=== PATIENT | male | born 1970 | race Caucasian/White ===

== ENCOUNTER → 2018-09-23 09:13 | Outpatient (CLI) | payer OTHER, SELFPAY ==
--- NOTE | 2018-09-23 09:15 | DI.RAD.S_ITS ---
PROCEDURE: XR WRIST RT MIN 3V INDICATIONS: wrist pain TECHNIQUE: 4 views of the wrist were acquired. COMPARISON: None. FINDINGS: Bones: No fractures or dislocations. No suspicious bony lesions. Scaphoid view: Scaphoid is intact. Soft tissues: No suspicious soft tissue calcifications. IMPRESSION: No fracture or dislocation. Dictated by: Madisyn Decker M.D. on 09/23/2018 at 10:09 Approved by: Madisyn Decker M.D. on 09/23/2018 at 10:10
== END ==
PROVIDERS: Visit Provider Physician Assistant
DX: M25.531 Pain in right wrist (principal)
CPT/HCPCS: 73110

== ENCOUNTER → 2019-08-16 11:06 | Outpatient (CLI) | payer OTHER, MEDICAID, SELFPAY ==
[2019-08-16 12:32] LABS: Influenza A - CEPHEID Flu A NEGATIVE (NEGATIVE); Influenza B - CEPHEID Flu B NEGATIVE (NEGATIVE)
== END ==
PROVIDERS: Referring Provider Family Medicine; Visit Provider Family Medicine
DX: R50.9 Fever, unspecified (principal)
CPT/HCPCS: 87502

== ENCOUNTER → 2019-09-19 09:30 | Outpatient (CLI) | payer OTHER, MEDICAID, SELFPAY ==
[2019-09-19 10:30] LABS: Add Manual Diff / Slide Review NO; Basophils Absolute Auto 100 /uL (0-100); Basophils Percent Auto 0.4 % (0-2); Eosinophils Absolute Auto 100 /uL (0-450); Lymphocytes Absolute Auto 2000 /uL (1100-4500); Mean Corpuscular HGB Conc 35.2 % (30-36); Mean Corpuscular Hemoglobin 35.9 PG (26-34); Mean Corpuscular Volume 101.8 fL (80-100); Monocytes Absolute Auto 600 /uL (0-900); Monocytes Percent Auto 5.1 % (3-14); Neutrophils Absolute Auto 9100 /uL (1500-7000); Neutrophils Percent Auto 76.5 % (50-75); Platelet Count 147 X10^3/uL (150-400); Red Blood Cell Count 5.01 X10^6/uL (4.5-5.9); Red Cell Distribution Width 12.3 % (11.6-14.8); White Blood Cell Count 11.9 X10^3/uL (4.5-11.0)
[2019-09-19 10:39] LABS: INR 0.9 (0.9-1.3); Prothrombin Time 10.5 SECONDS (10.1-12.7)
[2019-09-19 10:47] LABS: Alanine Aminotransferase 37 IU/L (<50); Albumin 4.5 g/dL (3.5-5.0); Albumin Globulin Ratio 1.4 (1.0-2.8); Alkaline Phosphatase 107 U/L (38-126); Aspartate Aminotransferase 31 IU/L (17-59); BUN Creatinine Ratio 14.4 (6-22); Bilirubin Total 0.4 mg/dL (0.2-1.3); Blood Urea Nitrogen 13 mg/dL (9-20); Calcium 10.3 mg/dL (8.4-10.2); Carbon Dioxide 26 mmol/L (22-32); Chloride 106 mmol/L (98-107); Estimated Glomerular Filt Rate > 60.0 mL/min (>60); Globulin 3.3 g/dL (1.7-4.1); Glucose 119 mg/dL (70-100); HEMOLYSIS 16 (0-50); Potassium 4.7 mmol/L (3.4-5.1); Sodium 140 mmol/L (137-145); Total Protein 7.8 g/dL (6.3-8.2)
== END ==
PROVIDERS: PCP Internal Medicine; Referring Provider Internal Medicine; Visit Provider Internal Medicine
DX: K62.5 Hemorrhage of anus and rectum (principal)
CPT/HCPCS: 36415; 80053; 85025; 85610

== ENCOUNTER → 2019-09-28 15:19 | Outpatient (CLI) | payer OTHER, MEDICAID, SELFPAY ==
--- NOTE | 2019-09-28 15:22 | DI.CT.S_ITS ---
PROCEDURE: CT SINUS SCREEN WO CON INDICATIONS: sinsusitis worsening sxs TECHNIQUE: Noncontrast 3.0 mm axial images acquired from the frontal sinuses to the mid-sella, with coronal and sagittal reformats. For radiation dose reduction, the following was used: automated exposure control, adjustment of mA and/or kV according to patient size. COMPARISON: None. FINDINGS: Image quality: Excellent. Maxillary Sinuses: No bony remodeling or destruction. Moderate right and mild left maxillary sinus because of thickening. Ethmoid Air Cells: No bony remodeling or destruction. Severe bilateral ethmoid air cell mucosal thickening. Sphenoid Sinuses: No bony remodeling or destruction. Sinuses are clear. Frontal Sinuses: No bony remodeling or destruction. Left frontal sinus is clear. Mild right frontal sinus mucosal thickening. Nasofrontal recesses are opacified. Ostiomeatal Complexes: Ostiomeatal complexes are opacified bilaterally. No Steffen cells. Miscellaneous: Visualized intra-orbital contents are normal. No nabeel bullosa or paradoxical turbinate curvature. There is mild leftward deviation of the nasal septum. IMPRESSION: 1. Key sinus mucosal disease as described above. 2. Bilateral ostiomeatal unit and nasofrontal recess opacification. 3. Nasal septal deviation. Dictated by: Tatyana Gauthier M.D. on 09/28/2019 at 15:44 Approved by: Tatyana Gauthier M.D. on 09/28/2019 at 15:46
== END ==
PROVIDERS: PCP Internal Medicine; Referring Provider Internal Medicine; Visit Provider Internal Medicine
DX: J32.4 Chronic pansinusitis (principal); J34.2 Deviated nasal septum
CPT/HCPCS: 70486

== ENCOUNTER 2021-10-31 14:25 | Observation (INO) | payer OTHER, MEDICAID, SELFPAY ==
[2021-10-31] VITALS (16 sets, daily range): BP systolic 119–140; BP diastolic 75–82; PULSE 58–71; RESP 9–19; TEMP 35.9–36.6; O2SAT 97–100; BMI 23.3
--- NOTE | 2021-10-31 14:29 | DI.RAD.S_ITS ---
PROCEDURE: XR CHEST 1V INDICATIONS: chest pain TECHNIQUE: One view of the chest was acquired. COMPARISON: [facility], CR, XR CHEST 1 VIEW, 07/04/2021, 0:25. FINDINGS: Surgical changes and devices: Right clavicle fixation hardware. Lungs and pleura: Lungs are clear. No pleural effusions or pneumothorax. Mediastinum: Mediastinal contours appear normal. Pulmonary arteries are chronically prominent. Heart size is normal. Bones and chest wall: No suspicious bony lesions. Overlying soft tissues appear unremarkable. IMPRESSION: No acute cardiopulmonary disease. Dictated by: Krista Ott M.D. on 10/31/2021 at 14:50 Approved by: Krista Ott M.D. on 10/31/2021 at 14:51
[2021-10-31 14:48] LABS: Add Manual Diff / Slide Review NO; Basophils Absolute Auto 100 /uL (0-100); Basophils Percent Auto 0.9 % (0-2); Eosinophils Absolute Auto 100 /uL (0-450); Eosinophils Percent Auto 1.6 % (2-4); Hematocrit 43.1 % (41-53); Hemoglobin 14.6 g/dL (13.5-17.5); Lymphocytes Absolute Auto 2000 /uL (1100-4500); Lymphocytes Percent Auto 31.1 % (25-40); Mean Corpuscular HGB Conc 33.9 % (30-36); Mean Corpuscular Hemoglobin 33.6 PG (26-34); Mean Corpuscular Volume 99.1 fL (80-100); Monocytes Absolute Auto 600 /uL (0-900); Neutrophils Absolute Auto 3700 /uL (1500-7000); Neutrophils Percent Auto 57.4 % (50-75); Platelet Count 141 X10^3/uL (150-400); Red Blood Cell Count 4.35 X10^6/uL (4.5-5.9); Red Cell Distribution Width 12.5 % (11.6-14.8); White Blood Cell Count 6.4 X10^3/uL (4.5-11.0)
[2021-10-31 14:51] LABS: INR 0.9 (0.9-1.3); Prothrombin Time 10.4 SECONDS (10.1-12.7)
[2021-10-31 14:54] LABS: PTT Partial Thromboplastin Tim 33 SECONDS (26.4-36.2)
[2021-10-31 14:55] LABS: Alanine Aminotransferase 49 IU/L (<50); Albumin 4.7 g/dL (3.5-5.0); Albumin Globulin Ratio 1.6 (1.0-2.8); Alkaline Phosphatase 95 U/L (38-126); Aspartate Aminotransferase 30 IU/L (17-59); BUN Creatinine Ratio 16.5 (6-22); Bilirubin Total 0.4 mg/dL (0.2-1.3); Blood Urea Nitrogen 15 mg/dL (9-20); Calcium 9.5 mg/dL (8.4-10.2); Carbon Dioxide 27 mmol/L (22-32); Chloride 105 mmol/L (98-107); Creatine Kinase 68 U/L (55-170); Estimated Glomerular Filt Rate > 60 mL/min (>60); Glucose 143 mg/dL (70-100); HEMOLYSIS 19 (0-50); Lipase 43 U/L (23-300); Magnesium 2.1 mg/dL (1.6-2.3); Potassium 4.4 mmol/L (3.4-5.1); Sodium 139 mmol/L (137-145); Total Protein 7.7 g/dL (6.3-8.2)
[2021-10-31 15:04] LABS: NT-proBNP (BNP-Adult 18+) 72 pg/mL (<125)
[2021-10-31 15:07] LABS: Troponin I < 0.012 ng/mL (0.01-0.034)
--- NOTE | 2021-10-31 15:38 | ED.CHESTPAIN ---
HPI - Chest Pain General Chief Complaint: Chest Pain Stated Complaint: Chest Pain,coming from cardiac rehab Time Seen by Provider: 10/31/21 15:05 Source: patient Mode of arrival: Wheelchair Limitations: no limitations Limitations: no limitations History of Present Illness HPI narrative: The patient has suffered an GA June 2021. He was seen at [facility], a stent was placed. He stopped smoking. He takes daily aspirin. He is compliant with medications. He frequently experiences chest pain, generally in his lower sternum. He presents here today with several hours of sternal pain earlier today. The pain did not radiate. He has no palpitations, no dyspnea, no weakness or dizziness. He has no GI symptoms. He denies recent illness. He is not coughing. Pain is now resolved. He has see cardiology once since the GA. Related Data Home Medications Medication Instructions Recorded Confirmed ketoconazole 2 % topical cream TOP 10/31/19 07/08/20 Previous Rx's Medication Instructions Recorded fluticasone propionate 50 2 spray NASAL BEDTIME #16 gram 09/19/19 mcg/actuation nasal spray,suspension hydrocortisone acetate 25 mg 25 mg TX BID #12 each 09/19/19 rectal suppository (Anusol-HC) oxycodone 5 mg capsule 5 mg PO TID PRN #20 cap 11/07/19 erythromycin 5 mg/gram (0.5 %) eye 1 applic OPHTHALMIC (EYE) Q8H 7 07/08/20 ointment Days #3.5 g Allergies Allergy/AdvReac Type Severity Reaction Status Date / Time venom-honey bee Allergy Severe anaphylaxis Verified 10/31/21 14:37 Review of Systems Constitutional Constitutional: Denies anorexia, Denies body ache(s), Denies chills, Denies fatigue, Denies fever(s) and Denies headache(s) Eyes Eyes: Denies change in vision ENT Ears, Nose, Mouth, and Throat: Denies vertigo, Denies dizziness, Denies headache(s), Denies sinus pressure and Denies sore throat Cardiovascular Cardiovascular: Reports chest pain, Denies syncope, Denies rapid heart rate, Denies pedal edema and Denies edema Respiratory Respiratory: Denies cough Gastrointestinal Gastrointestinal: Denies abdominal pain and Denies nausea Musculoskeletal Musculoskeletal: Denies back pain and Denies myalgias Integumentary/Breasts Skin/Breast: Denies lesions and Denies rash Neurologic Neurologic: Denies confusion, Denies vertigo, Denies dizziness, Denies syncope and Denies headache(s) Psychiatric Psychiatric: Denies confusion and Denies depression Endocrine Endocrine: Denies fatigue Hematologic/Lymphatic On Anticoagulants: Yes Patient History Medical History (Updated 10/31/21 @ 20:08 by Doug Wilson MD) Chest trauma Myocardial infarction Sinusitis Surgical History (Updated 10/31/21 @ 20:03 by Doug Wilson MD) S/P angioplasty with stent Social History Smoking Status: Current every day smoker Tobacco: How many years used: 30 Smokeless tobacco user: chewing tobacco quit status: considering quitting second hand exposure: No alcohol intake: current (couple beers a day ) substance use type: former substance user and marijuana (When I was a teenager ) Smoking Status: Current every day smoker alcohol intake frequency: holidays/special occasions only Substance Use Type: does not use Exam Initial Vital Signs Initial Vital Signs: Vital Signs Pulse Rate 71 10/31/21 14:31 Blood Pressure 140/76 10/31/21 14:31 Pulse Oximetry 99 10/31/21 14:31 Const General: cooperative, healthy appearing, comfortable, well developed, well groomed and No acute distress [facility] Head: normal to inspection, normocephalic and atraumatic Mouth: oral mucosae normal Throat: posterior oropharynx normal Eyes General: appearance normal, both eyes and all related structures Pupils: PERRL EOM: EOM intact bilaterally Neck Neck: normal visual inspection and No JVD Carotids: normal carotid upstroke Chest Chest: normal palpation of entire chest wall Resp Effort & Inspection: normal respiratory effort Auscultation: clear to auscultation bilaterally Cardio Rate: regular rate Rhythm: regular rhythm Heart Sounds: S1 normal, S2 normal, no click and no murmurs GI Inspection: normal to inspection Palpation: soft, No mass and No tender Back/Spine/Pelvis Back: normal to inspection Skin General: no rashes or lesions noted Neuro General: patient alert, patient awake, patient oriented x3 and no focal motor deficits Extrem General: normal to inspection, full ROM, no pedal edema and no calf tenderness Psych Mental Status: mental status grossly normal Course Course Course Narrative: The patient became pain-free after arrival. EKG shows no evidence of STEMI. Troponin and a repeat troponin are negative. Dr. Perez, Cardiology, contacted the ER about this patient. He recommended nuclear stress test. The patient is admitted to [facility] hospitalist. Diagnostic imaging has confirmed ability do a nuclear stress test tomorrow. The patient has been admitted to observation with the test pending tomorrow. tomorrow. Orders Ordered: ED Orders 10/31/21 14:29 XR chest 1V Stat EKG-12 Lead Stat 10/31/21 14:35 BNP [NT-proBNP (BNP-Adult 18+)] Stat Complete Blood Count AUTO DIFF Stat Comprehensive Metabolic Panel Stat Lipase Stat Magnesium Stat Partial Thromboplastin Time Stat Prothrombin Time INR Stat Troponin & CK Cardiac Panel Stat 10/31/21 16:35 Trop I [Troponin I] Stat Vital Signs Vital signs: Vital Signs - 8 hr 10/31/21 14:31 10/31/21 14:32 10/31/21 15:00 Temperature 97.8 F Pulse Rate 71 71 63 Respiratory Rate 16 11 L Blood Pressure 140/76 140/76 121/79 Pulse Oximetry 99 99 97 10/31/21 15:29 10/31/21 15:30 10/31/21 16:00 Temperature Pulse Rate 65 63 60 Respiratory Rate 18 17 9 L Blood Pressure 126/80 124/78 Pulse Oximetry 98 98 98 10/31/21 16:30 10/31/21 17:00 10/31/21 17:30 Temperature Pulse Rate 62 62 64 Respiratory Rate 11 L 15 13 Blood Pressure 119/82 126/77 Pulse Oximetry 98 98 98 10/31/21 18:00 10/31/21 18:30 Temperature Pulse Rate 62 63 Respiratory Rate 18 17 Blood Pressure 122/75 125/80 Pulse Oximetry 99 100 MDM - Chest Pain Lab Data Result diagrams: 10/31/21 14:35 10/31/21 14:35 Labs: Lab Results 10/31/21 10/31/21 10/31/21 Range/Units 14:35 14:35 14:35 WBC 6.4 (4.5-11.0) X10^3/uL RBC 4.35 L (4.5-5.9) X10^6/uL Hgb 14.6 (13.5-17.5) g/dL Hct 43.1 (41-53) % MCV 99.1 (80-100) fL MCH 33.6 (26-34) PG MCHC 33.9 (30-36) % RDW 12.5 (11.6-14.8) % Plt Count 141 L (150-400) X10^3/uL Neut % (Auto) 57.4 (50-75) % Lymph % (Auto) 31.1 (25-40) % [place] % (Auto) 9.0 (3-14) % Eos % (Auto) 1.6 L (2-4) % Baso % (Auto) 0.9 (0-2) % Neut # (Auto) 3700 (5252-6296) /uL Lymph # (Auto) 2000 (4629-2773) /uL [place] # (Auto) 600 (0-900) /uL Eos # (Auto) 100 (0-450) /uL Baso # (Auto) 100 (0-100) /uL PT 10.4 (10.1-12.7) SECONDS INR 0.9 (0.9-1.3) APTT 33 (26.4-36.2) SECONDS Sodium 139 (137-145) mmol/L Potassium 4.4 (3.4-5.1) mmol/L Chloride 105 (98-107) mmol/L Carbon Dioxide 27 (22-32) mmol/L BUN 15 (9-20) mg/dL Creatinine 0.91 (0.66-1.25) mg/dL Estimated GFR > 60 (>60) mL/min BUN/Creatinine Ratio 16.5 (6-22) Glucose 143 H (70-100) mg/dL Calcium 9.5 (8.4-10.2) mg/dL Magnesium 2.1 (1.6-2.3) mg/dL Total Bilirubin 0.4 (0.2-1.3) mg/dL AST 30 (17-59) IU/L ALT 49 (<50) IU/L Alkaline Phosphatase 95 (38-126) U/L Total Creatine Kinase 68 (55-170) U/L CK-MB (CK-2) TNP CK-MB (CK-2) Rel Index TNP Troponin I < 0.012 (0.01-0.034) ng/mL NT-Pro-B Natriuret Pep (<125) pg/mL Total Protein 7.7 (6.3-8.2) g/dL Albumin 4.7 (3.5-5.0) g/dL Globulin 3.0 (1.7-4.1) g/dL Albumin/Globulin Ratio 1.6 (1.0-2.8) Lipase 43 (23-300) U/L 10/31/21 10/31/21 Range/Units 14:35 16:35 WBC (4.5-11.0) X10^3/uL RBC (4.5-5.9) X10^6/uL Hgb (13.5-17.5) g/dL Hct (41-53) % MCV (80-100) fL MCH (26-34) PG MCHC (30-36) % RDW (11.6-14.8) % Plt Count (150-400) X10^3/uL Neut % (Auto) (50-75) % Lymph % (Auto) (25-40) % [place] % (Auto) (3-14) % Eos % (Auto) (2-4) % Baso % (Auto) (0-2) % Neut # (Auto) (7866-6318) /uL Lymph # (Auto) (6078-6721) /uL [place] # (Auto) (0-900) /uL Eos # (Auto) (0-450) /uL Baso # (Auto) (0-100) /uL PT (10.1-12.7) SECONDS INR (0.9-1.3) APTT (26.4-36.2) SECONDS Sodium (137-145) mmol/L Potassium (3.4-5.1) mmol/L Chloride (98-107) mmol/L Carbon Dioxide (22-32) mmol/L BUN (9-20) mg/dL Creatinine (0.66-1.25) mg/dL Estimated GFR (>60) mL/min BUN/Creatinine Ratio (6-22) Glucose (70-100) mg/dL Calcium (8.4-10.2) mg/dL Magnesium (1.6-2.3) mg/dL Total Bilirubin (0.2-1.3) mg/dL AST (17-59) IU/L ALT (<50) IU/L Alkaline Phosphatase (38-126) U/L Total Creatine Kinase (55-170) U/L CK-MB (CK-2) CK-MB (CK-2) Rel Index Troponin I < 0.012 (0.01-0.034) ng/mL NT-Pro-B Natriuret Pep 72 (<125) pg/mL Total Protein (6.3-8.2) g/dL Albumin (3.5-5.0) g/dL Globulin (1.7-4.1) g/dL Albumin/Globulin Ratio (1.0-2.8) Lipase (23-300) U/L Imaging Data Chest x-ray: Radiologist's Impression: No acute cardiopulmonary disease. ECG Data Attestation: I personally reviewed and interpreted this ECG as follows: (Normal sinus rhythm rate 65 beats per minute. Normal intervals. No ectopy. No acute ST T wave changes. Early repolarization V2 and V3.) Critical Care Time Critical Care Time Critical Care Time: Yes Total Critical Care Time: 20 Attestation: Time included initial assessment patient, review of records, and review of lab, x-ray and EKG data. The patient is informed the clinical situation. Situation discussed with the admitting hospitalist. Discharge Plan Departure Patient Disposition: Admitted as Observation Clinical Impression: Chest pain, CAD (coronary artery disease) Prescriptions: No Action erythromycin 5 mg/gram (0.5 %) ointment 1 applic ophthalmic (eye) Q8H 7 Days Qty: 3.5 2RF oxycodone 5 mg capsule 5 mg PO TID PRN (Reason: pain) Qty: 20 0RF fluticasone propionate 50 mcg/actuation spray,suspension 2 spray NASAL BEDTIME Qty: 16 0RF Rx Instructions: administer into each nostril hydrocortisone acetate [Anusol-HC] 25 mg suppository 25 mg TX BID Qty: 12 0RF ketoconazole 2 % cream TOP 0RF Referrals: Cecil Cedeño, DO [Primary Care Provider] -
--- NOTE | 2021-10-31 15:42 | ED_ITS ---
HPI - Chest Pain General Chief Complaint: Chest Pain Stated Complaint: Chest Pain,coming from cardiac rehab Time Seen by Provider: 10/31/21 15:05 Source: patient Mode of arrival: Wheelchair Limitations: no limitations History of Present Illness HPI narrative: Patient is a 51-year-old male presenting to the emergency department today for evaluation chest pain. Patient states he was on his way to cardiac rehab when he began to experience gradually worsening sharp chest pain. He states that he notified the staff at the cardiac rehabilitation facility and was administered 1 of nitroglycerin, but he states that his pain was not changed after administration of the medication. He states that the pain is intermittent and lasts approximately 15-20 seconds Related Data Home Medications Medication Instructions Recorded Confirmed ketoconazole 2 % topical cream TOP 10/31/19 07/08/20 Previous Rx's Medication Instructions Recorded fluticasone propionate 50 2 spray NASAL BEDTIME #16 gram 09/19/19 mcg/actuation nasal spray,suspension hydrocortisone acetate 25 mg 25 mg NE BID #12 each 09/19/19 rectal suppository (Anusol-HC) oxycodone 5 mg capsule 5 mg PO TID PRN #20 cap 11/07/19 erythromycin 5 mg/gram (0.5 %) eye 1 applic OPHTHALMIC (EYE) Q8H 7 07/08/20 ointment Days #3.5 g Allergies Allergy/AdvReac Type Severity Reaction Status Date / Time venom-honey bee Allergy Severe anaphylaxis Verified 10/31/21 14:37 Patient History Medical History (Updated 07/08/20 @ 16:49 by Nayla Ramirez PA-C) Chest trauma Sinusitis Social History Smoking Status: Current every day smoker Tobacco: How many years used: 30 Smokeless tobacco user: chewing tobacco quit status: considering quitting second hand exposure: No alcohol intake: current (couple beers a day ) substance use type: former substance user and marijuana (When I was a teenager ) Smoking Status: Current every day smoker alcohol intake frequency: holidays/special occasions only Substance Use Type: does not use Exam Initial Vital Signs Initial Vital Signs: Vital Signs Pulse Rate 71 10/31/21 14:31 Blood Pressure 140/76 10/31/21 14:31 Pulse Oximetry 99 10/31/21 14:31 Course Orders Ordered: ED Orders 10/31/21 14:29 XR chest 1V Stat EKG-12 Lead Stat 10/31/21 14:35 BNP [NT-proBNP (BNP-Adult 18+)] Stat Complete Blood Count AUTO DIFF Stat Comprehensive Metabolic Panel Stat Lipase Stat Magnesium Stat Partial Thromboplastin Time Stat Prothrombin Time INR Stat Troponin & CK Cardiac Panel Stat 10/31/21 16:30 Trop I [Troponin I] Stat Vital Signs Vital signs: Vital Signs - 8 hr 10/31/21 14:31 10/31/21 14:32 10/31/21 15:00 Temperature 97.8 F Pulse Rate 71 71 63 Respiratory Rate 16 11 L Blood Pressure 140/76 140/76 121/79 Pulse Oximetry 99 99 97 10/31/21 15:29 10/31/21 15:30 Temperature Pulse Rate 65 Respiratory Rate 18 Blood Pressure 126/80 Pulse Oximetry 98 MDM - Chest Pain Lab Data Result diagrams: 10/31/21 14:35 10/31/21 14:35 Labs: Lab Results 10/31/21 10/31/21 10/31/21 Range/Units 14:35 14:35 14:35 WBC 6.4 (4.5-11.0) X10^3/uL RBC 4.35 L (4.5-5.9) X10^6/uL Hgb 14.6 (13.5-17.5) g/dL Hct 43.1 (41-53) % MCV 99.1 (80-100) fL MCH 33.6 (26-34) PG MCHC 33.9 (30-36) % RDW 12.5 (11.6-14.8) % Plt Count 141 L (150-400) X10^3/uL Neut % (Auto) 57.4 (50-75) % Lymph % (Auto) 31.1 (25-40) % [place] % (Auto) 9.0 (3-14) % Eos % (Auto) 1.6 L (2-4) % Baso % (Auto) 0.9 (0-2) % Neut # (Auto) 3700 (8231-4942) /uL Lymph # (Auto) 2000 (4068-2453) /uL [place] # (Auto) 600 (0-900) /uL Eos # (Auto) 100 (0-450) /uL Baso # (Auto) 100 (0-100) /uL PT 10.4 (10.1-12.7) SECONDS INR 0.9 (0.9-1.3) APTT 33 (26.4-36.2) SECONDS Sodium 139 (137-145) mmol/L Potassium 4.4 (3.4-5.1) mmol/L Chloride 105 (98-107) mmol/L Carbon Dioxide 27 (22-32) mmol/L BUN 15 (9-20) mg/dL Creatinine 0.91 (0.66-1.25) mg/dL Estimated GFR > 60 (>60) mL/min BUN/Creatinine Ratio 16.5 (6-22) Glucose 143 H (70-100) mg/dL Calcium 9.5 (8.4-10.2) mg/dL Magnesium 2.1 (1.6-2.3) mg/dL Total Bilirubin 0.4 (0.2-1.3) mg/dL AST 30 (17-59) IU/L ALT 49 (<50) IU/L Alkaline Phosphatase 95 (38-126) U/L Total Creatine Kinase 68 (55-170) U/L CK-MB (CK-2) TNP CK-MB (CK-2) Rel Index TNP Troponin I < 0.012 (0.01-0.034) ng/mL NT-Pro-B Natriuret Pep (<125) pg/mL Total Protein 7.7 (6.3-8.2) g/dL Albumin 4.7 (3.5-5.0) g/dL Globulin 3.0 (1.7-4.1) g/dL Albumin/Globulin Ratio 1.6 (1.0-2.8) Lipase 43 (23-300) U/L // Range/Units 14:35 WBC (4.5-11.0) X10^3/uL RBC (4.5-5.9) X10^6/uL Hgb (13.5-17.5) g/dL Hct (41-53) % MCV (80-100) fL MCH (26-34) PG MCHC (30-36) % RDW (11.6-14.8) % Plt Count (150-400) X10^3/uL Neut % (Auto) (50-75) % Lymph % (Auto) (25-40) % [place] % (Auto) (3-14) % Eos % (Auto) (2-4) % Baso % (Auto) (0-2) % Neut # (Auto) (7528-0362) /uL Lymph # (Auto) (2263-1943) /uL [place] # (Auto) (0-900) /uL Eos # (Auto) (0-450) /uL Baso # (Auto) (0-100) /uL PT (10.1-12.7) SECONDS INR (0.9-1.3) APTT (26.4-36.2) SECONDS Sodium (137-145) mmol/L Potassium (3.4-5.1) mmol/L Chloride (98-107) mmol/L Carbon Dioxide (22-32) mmol/L BUN (9-20) mg/dL Creatinine (0.66-1.25) mg/dL Estimated GFR (>60) mL/min BUN/Creatinine Ratio (6-22) Glucose (70-100) mg/dL Calcium (8.4-10.2) mg/dL Magnesium (1.6-2.3) mg/dL Total Bilirubin (0.2-1.3) mg/dL AST (17-59) IU/L ALT (<50) IU/L Alkaline Phosphatase (38-126) U/L Total Creatine Kinase (55-170) U/L CK-MB (CK-2) CK-MB (CK-2) Rel Index Troponin I (0.01-0.034) ng/mL NT-Pro-B Natriuret Pep 72 (<125) pg/mL Total Protein (6.3-8.2) g/dL Albumin (3.5-5.0) g/dL Globulin (1.7-4.1) g/dL Albumin/Globulin Ratio (1.0-2.8) Lipase (23-300) U/L Discharge Plan Departure Prescriptions: No Action erythromycin 5 mg/gram (0.5 %) ointment 1 applic ophthalmic (eye) Q8H 7 Days Qty: 3.5 2RF oxycodone 5 mg capsule 5 mg PO TID PRN (Reason: pain) Qty: 20 0RF fluticasone propionate 50 mcg/actuation spray,suspension 2 spray NASAL BEDTIME Qty: 16 0RF Rx Instructions: administer into each nostril hydrocortisone acetate [Anusol-HC] 25 mg suppository 25 mg NE BID Qty: 12 0RF ketoconazole 2 % cream TOP 0RF Referrals: Cecil Cedeño DO [Primary Care Provider] -
[2021-10-31 17:54] LABS: Troponin I < 0.012 ng/mL (0.01-0.034)
--- NOTE | 2021-10-31 19:55 | PC.NURSE ---
Pt declines offers for floor snacks r/t dietary restrictions and does not know home medications off the top of his head, states a friend will bring him food and also home medications.
--- NOTE | 2021-10-31 22:53 | DI.ECHO.S_ITS ---
[facility]---------+ [facility] +---------+ : : [address] [place] : : : : [id number] : : : : Phone: [phone] Echocardiogram Report + + :Name: MARLY EWING Study Date: 11/01/2021 Height: 70 in : :[facility] ReadingLocation: Weight: 163 lb : : Gender: Male BSA: 1.9 m2 : :: 1970 Age: 51 yrs BP: 109/65 mmHg: :Reason For Study: Chest pain : : Performed By: Salvatore Craft : :Referring: SHARMIN CHRISTIANSON : + + Interpretation Summary The left ventricle is normal in size and wall thickness. The ejection fraction is estimated to be 55-60%. The right ventricle is normal in size and function. There is mild mitral regurgitation. There is mild tricuspid regurgitation. The right ventricular systolic pressure is estimated to be at least 25 mmHg based on an estimated right atrial pressure of 3 mm Hg. Procedure: A two-dimensional transthoracic echocardiogram with color flow and Doppler was performed. The study quality was technically adequate. The patient was in normal sinus rhythm during the exam. The heart rate ranged between 56-67 bpm during the study. Left Ventricle: The left ventricle is normal in size and wall thickness. There is no thrombus. Left ventricular systolic function is normal. The ejection fraction is estimated to be 55-60%. There are no focal wall motion abnormalities. No significant diastolic dysfunction. Right Ventricle: The right ventricle is normal in size and function. Atria: Both atria are normal in size. The interatrial septum grossly appears intact with no obvious evidence for an atrial septal defect. Mitral Valve: There is mild mitral annular calcification. The mitral valve leaflets appear mildly thickened, but open well. There is mild mitral regurgitation. Aortic Valve: The aortic valve is normal in structure and function. The aortic valve is trileaflet. There is no aortic valve stenosis. No aortic regurgitation is present. Tricuspid Valve: The tricuspid valve is normal. There is mild tricuspid regurgitation. The right ventricular systolic pressure is estimated to be at least 25 mmHg based on an estimated right atrial pressure of 3 mm Hg. Pulmonic Valve: The pulmonic valve is normal in structure and function. There is trace pulmonic regurgitation. Great Vessels: The aortic root is normal size. The dimensions of the ascending aorta are normal. The IVC is of normal diameter and collapses greater than 50% with a sniff. This suggests a low right atrial pressure of 3 mm Hg. Pericardium/ Pleura There is no pericardial effusion. There is no pleural effusion. MMode/2D Measurements & Calculations LVIDd: 4.5 cm LVOT diam: 1.9 cm LVIDs: 3.3 cm Ao root diam: 2.7 cm FS: 28.1 % asc Aorta Diam: 2.8 cm IVSd: 0.91 cm LVPWd: 0.91 cm LV bass. diameter/BSA (cm/m^2): 2.4 LV sys. diameter/BSA (cm/m^2): 1.7 LA A2 area: 14.7 cm2 RA long axis: 4.1 cm LA A4 area: 12.8 cm2 RA area: 10.8 cm2 LA length (vol): 4.5 cm RA vol: 24.3 ml LA vol: 35.2 ml RA : 12.7 ml/m2 LA vol index: 18.4 ml/m2 TAPSE: 2.1 cm Doppler Measurements & Calculations Ao V2 max: 112.4 cm/sec LVOT Max Abad: 89.9 cm/sec Ao V2 mean: 78.6 cm/sec LV V1 max P.2 mmHg Ao max P.0 mmHg LV V1 VTI: 17.5 cm Ao mean P.8 mmHg EDILMA(I,D): 2.3 cm2 Ao V2 VTI: 22.6 cm EDILMA(V,D): 2.3 cm2 sev ratio: 0.77 EDILMA indexed to BSA (cm^2/m^2): 1.2 MV E max abad: 78.4 cm/sec TR max abad: 233.2 cm/sec MV A max abad: 66.4 cm/sec TR max P.8 mmHg MV E/A: 1.2 Med Peak E' Abad: 7.8 cm/sec E/E' med: 10.0 Lat Peak E' Abad: 9.9 cm/sec E/E' lat: 8.0 E/e' average: 9.0 MV dec time: 0.20 sec SV(LVOT): 50.9 ml Reading Physician:10:56 AM
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
[2021-10-31 23:55] LABS: Troponin I 0.033 ng/mL (0.01-0.034)
[2021-10-31 23:56] LABS: Hemoglobin A1C% w Est Avg Glu 6.3 % (4.0-6.0)
[2021-11-01 02:45] VITALS: BP 111/69; PULSE 66; RESP 14; TEMP 36.7; O2SAT 97
[2021-11-01 05:11] LABS: COVID19 - ADMIT (NP swab/PCR) Negative (Negative)
[2021-11-01 05:49] LABS: Add Manual Diff / Slide Review NO; Basophils Absolute Auto 100 /uL (0-100); Basophils Percent Auto 0.8 % (0-2); Eosinophils Absolute Auto 100 /uL (0-450); Eosinophils Percent Auto 1.9 % (2-4); Hematocrit 40.3 % (41-53); Hemoglobin 13.9 g/dL (13.5-17.5); Lymphocytes Absolute Auto 2000 /uL (1100-4500); Lymphocytes Percent Auto 30.6 % (25-40); Mean Corpuscular HGB Conc 34.5 % (30-36); Mean Corpuscular Volume 98.4 fL (80-100); Monocytes Absolute Auto 600 /uL (0-900); Monocytes Percent Auto 9.9 % (3-14); Neutrophils Absolute Auto 3700 /uL (1500-7000); Neutrophils Percent Auto 56.8 % (50-75); Platelet Count 126 X10^3/uL (150-400); Red Cell Distribution Width 12.2 % (11.6-14.8); White Blood Cell Count 6.5 X10^3/uL (4.5-11.0)
[2021-11-01 05:57] LABS: BUN Creatinine Ratio 17.6 (6-22); Blood Urea Nitrogen 16 mg/dL (9-20); Calcium 8.7 mg/dL (8.4-10.2); Carbon Dioxide 26 mmol/L (22-32); Chloride 105 mmol/L (98-107); Cholesterol 152 mg/dL (140-199); Estimated Glomerular Filt Rate > 60 mL/min (>60); Glucose 164 mg/dL (70-100); HDL Cholesterol 45 mg/dL (40-60); HEMOLYSIS < 15 (0-50); LDL Cholesterol Calculated 71 mg/dL (<100); Magnesium 2.2 mg/dL (1.6-2.3); Potassium 4.1 mmol/L (3.4-5.1); Sodium 138 mmol/L (137-145); Triglycerides 182 mg/dL (35-150)
[2021-11-01 06:00] VITALS: BP 109/65; PULSE 56; RESP 14; TEMP 36.7; O2SAT 98
[2021-11-01 06:08] LABS: Troponin I < 0.012 ng/mL (0.01-0.034)
[2021-11-01] MEDS: ENOXAPARIN 40 MG/0.4 ML SYRINGE SUBCUT (09:17)
[2021-11-01] MEDS: ASPIRIN 81 MG CHEW TAB PO (09:19)
[2021-11-01] MEDS: CLOPIDOGREL 75 MG TABLET PO (09:19)
[2021-11-01 09:34] VITALS: BP 100/67; PULSE 67; RESP 19; TEMP 36.7; O2SAT 98
--- NOTE | 2021-11-01 10:40 | CM.DANOTE ---
DCP: Case received, EMR reviewed and met with patient. Introduced self and role. Was able to obtain some brief information regarding patient's baseline activity prior to hospitalization. DCP assessment completed with information currently available. Patient is a 51 year old male who admitted yesterday evening to the care of the hospitalist team. PCP: Dr. Cedeño. Payer: confirmed: [employer]/Medicaid. Patient came to the hospital via private vehicle secondary to his having chest pain. According to notes, patient had been on his way to cardiac rehab, and when there, had notified the staff, and was given nitro. His video operator, Dr. Berumen, was aware of patient coming to ED, and wanted patient admitted for a stress test. Patient had CO in June. Patient is here for a cardiac work up. Met with patient in his room. He was in bed, alert and oriented. Patient resides in [place] with his significant other, Cinthya Alarcon. He is independent at his baseline. P: DCP to continue to follow. Patient should be able to go home when he is deemed medically stable. Mansi Leon RN/Box Toe Stitcher Discharge Planning/Care Management CM Discharge Assessment Start: 11/01/21 10:39 Freq: Status: Active Protocol: Document 11/01/21 10:39 (Rec: 11/01/21 10:40 [id number]) Discharge Planning Assessment Assigned Stock Replenisher Mansi Leon RN/Box Toe Stitcher Advance Directives? No History Provided By Patient,Medical Record Prior Living Arrangements House Household Members significant other Type of transporation used prior to Drives own vehicle admit Independent with ADL's Yes Is patient alert and oriented? Yes Caregiver for Another No Barriers to Discharge No Discharge Plan Home Transportation Arrangement Significant other Referrals Initiated None needed Whiteboard Updated in Patient Room with Yes name and ext. # of Stock Replenisher Review Status In Process Next Review Type Continued Stay Review
[2021-11-01 12:00] VITALS: BP 109/68; PULSE 65; RESP 18; TEMP 36.4; O2SAT 97
--- NOTE | 2021-11-01 13:21 | PM.TREADMILL ---
Cardiac Stress Test Report Referral & Results Date Patient Seen: 11/01/21 Time Patient Seen: 13:22 Requesting provider: Adele Jose Indication: chest pain Rest ECG: Sinus rhythm Procedure Note: After Lexiscan injection, had minimal dyspnea & nausea with no chest pain No significant ST changes after Lexiscan injection No ectopy No reversal agent needed Impression: Normal Lexiscan stress test Please note: Actual ECG tracings can be found in the PACS system.
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
--- NOTE | 2021-11-01 18:06 | DI.NM.S_ITS ---
DATE OF SERVICE: 11/01/2021 PROCEDURE PERFORMED: Pharmacologic vasodilator stress and rest myocardial perfusion imaging with gating to assess ejection fraction and regional wall motion. ORDERING PROVIDER: RANDY Alonso. INDICATIONS: The patient is a 51-year-old male with a history of coronary artery stents who was admitted with chest discomfort. CARDIAC STRESS: 0.4 mg of regadenoson was infused per protocol with a normal hemodynamic response. He had no chest discomfort and only minimal dyspnea. His resting ECG is normal with normal ST segments, and there are no significant ST- segment shifts with stress. There were no arrhythmias. Per protocol, 25.6 millicuries of technetium-99m Myoview was injected. He was imaged 10 minutes later using a gated SPECT acquisition protocol. Earlier in the day while at rest, he was injected with 11.9 millicuries of technetium-99m Myoview and was imaged 20 minutes later, again using a gated SPECT acquisition protocol. FINDINGS: 1. Raw data: There is fairly good myocardial tracer uptake without any significant motion artifact. Lung/heart ratio is normal at 0.37 with a normal TID ratio of 1.16. There is some slight subdiaphragmatic tracer activity adjacent to the inferior wall that can influence the interpretation. 2. Quantitated gated SPECT: Post-stress ejection fraction is estimated at 67% without any focal wall motion abnormality. Resting ejection fraction is 61% with a normal resting end-diastolic volume of 106 mL. 3. Myocardial perfusion imaging: Post-stress supine images shows a fairly normal myocardial perfusion pattern without any concerning perfusion defects. The prone images show a completely normal myocardial perfusion pattern without any perfusion defects. The resting images show an identical perfusion pattern without any significant change. IMPRESSION: 1. Normal myocardial perfusion study. 2. No evidence of myocardial ischemia or previous myocardial infarction. 3. Normal left ventricular systolic function without any focal wall motion abnormality. 4. No angina or ECG evidence of ischemia with pharmacologic vasodilator stress. LozanoMike - KAREEN/earnest/maria eugenia doc#: [id number]/job#: [id number] dd: 11/01/2021 16:20:00 dt: 11/01/2021 17:41:00 DICTATING MD/COPIES TO: Doug Josue MD; RANDY Alonso; Clinton Berumen MD COPIES MNE: DAVEY; ;
--- NOTE | 2021-11-01 19:33 | PC.NURSE ---
PT A&OX3, VSS, afebrile. Pt BG in 160's today. After stress test and echo completed he is cleared for discharge home. He verbalizes understanding of discharge instructions, and follow up and is escorted to his hospital entrance with all of his belongings for discharge home with his personal vehicle.
== END 2021-11-01 17:30 | disposition home or self-care (01) ==
LOC: ED 20:08 → AC 20:18
PROVIDERS: Physician Assistant; Admitting Provider Nurse Practitioner Family; Emergency Provider Emergency Medicine; PCP Family Medicine; Visit Provider Nurse Practitioner Family
DX: R07.9 Chest pain, unspecified (principal); I25.2 Old myocardial infarction; I25.10 Atherosclerotic heart disease of native coronary artery without angina pectoris; E11.9 Type 2 diabetes mellitus without complications; F17.210 Nicotine dependence, cigarettes, uncomplicated; Z79.82 Long term (current) use of aspirin; Z79.84 Long term (current) use of oral hypoglycemic drugs; Z20.822 Contact with and (suspected) exposure to COVID-19
CPT/HCPCS: 36415; 71045; 78452; 80048; 80053; 80061; 82550; 82962; 83036; 83690; 83735; 83880; 84443; 84484; 85025; 85610; 85730; 87635; 93005; 93018; 93306; 96372; 99284; 99285; C9803; G0378; A9502; J1650; J1815; J2785

== ENCOUNTER 2022-01-22 14:15 | Outpatient (RCR) | payer OTHER, MEDICAID, SELFPAY | END 2022-01-22 16:15 | LOC: CAR 14:15 | PROVIDERS: PCP Family Medicine; Referring Provider Internal Medicine Cardiovascular Disease; Visit Provider Internal Medicine Cardiovascular Disease | DX: Z95.5 Presence of coronary angioplasty implant and graft (principal); I25.2 Old myocardial infarction | CPT/HCPCS: 93798 ==

== ENCOUNTER → 2023-04-06 12:45 | Outpatient (CLI) | payer OTHER, MEDICAID, SELFPAY ==
[2021-10-31 21:51] VITALS: BMI 23.3
--- NOTE | 2023-04-06 | DI.RAD.S_ITS ---
PROCEDURE: FL SHOULDER INJECTION MR/CT RT INDICATIONS: RIGHT SHOULDER PAIN COMPARISON: None. TECHNIQUE: The indications, alternatives, benefits, risks, and complications of the procedure were explained to the patient. Written informed consent was obtained and placed in the chart. The shoulder was examined fluoroscopically and a site for needle placement chosen for entry into the glenohumeral joint from an anterior approach. The skin was prepped and draped in a sterile fashion, and 1% lidocaine infiltrated from skin down to joint capsule. A spinal needle was inserted into the glenohumeral joint, and a small amount of iodinated contrast media injected to confirm intra-articular placement of the needle tip. This was followed by approximately 12 mL dilute solution of a gadolinium containing MR contrast agent. The needle was removed and a dressing was applied. The patient was given postprocedural instructions and sent to the MR suite for MR imaging. FINDINGS: A single fluoroscopic spot image demonstrates intra-articular location of injected iodinated contrast. IMPRESSION: Successful fluoroscopically guided administration of dilute Gadolinium solution into the shoulder joint for MR arthrogram. Dictated by: Jj Crews M.D. on 04/06/2023 at 16:10 Approved by: Jj Crews M.D. on 04/06/2023 at 16:11
--- NOTE | 2023-04-06 | DI.MRI.S_ITS ---
PROCEDURE: MR SHOULDER RT W CON INDICATIONS: RIGHT SHOULDER PAIN TECHNIQUE: After the administration of 12 mL of dilute intra-articular Gadolinium contrast, oblique coronal T1 and T2 spin echo with fat saturation, oblique sagittal T1 spin echo with and without fat saturation, oblique sagittal T2 fast spin echo with fat saturation, axial T1 spin echo with fat saturation through the shoulder. COMPARISON: [facility], [place], XR SHOULDER 2+ VIEWS RIGHT, 02/16/2023, 14:27. [facility], [place], [place] SHOULDER INJECTION MR/CT RT, 04/06/2023, 13:19. FINDINGS: Image quality: Diagnostic. Susceptibility artifacts from left shoulder surgical hardware are seen. Rotator cuff: There is suggestion of low-grade bursal surface partial thickness tear involving distal supraspinatus extending to musculotendinous junction. Distal infraspinatus and subscapularis tendons are intact. No full-thickness rotator cuff tendon rupture. No significant rotator cuff muscle atrophy on sagittal images. Bones and bursae: There is prior internal fixation of distal clavicle with significant susceptibility artifacts limits evaluation. Mild acromioclavicular joint osteoarthritic changes are seen. Capsule and soft tissues: The labrum and glenohumeral ligaments appear intact. The long head of the biceps tendon demonstrates normal location and morphology. The rotator interval appears normal, without fibrosis. The coracohumeral ligament is of normal thickness. No intra-articular bodies. IMPRESSION: 1. Slightly degraded study due to significant susceptibility artifacts from surgical hardware in distal clavicle. No gross marrow edema. No acute fracture or dislocation. Mild acromioclavicular joint osteoarthritis. No gross intra-articular loose bodies. 2. Suggestion of low-grade bursal surface partial thickness tear involving distal supraspinatus extending to musculotendinous junction. No full-thickness rotator cuff tendon rupture. 3. No evidence of focal labral tear. Dictated by: Tobias Shields M.D. on 04/06/2023 at 21:14 Approved by: Tobias Shields M.D. on 04/06/2023 at 21:18
[2023-04-06] MEDS: LIDOCAINE 1% 20 ML INJ (15:04)
== END ==
LOC: RAD 12:45
PROVIDERS: Referring Provider Orthopaedic Surgery; Visit Provider Orthopaedic Surgery
DX: M19.011 Primary osteoarthritis, right shoulder (principal); M25.511 Pain in right shoulder
CPT/HCPCS: 23350; 73222; 77002

== ENCOUNTER → 2025-03-30 15:15 | Outpatient (CLI) | payer OTHER, SELFPAY ==
[2021-10-31 21:51] VITALS: BMI 23.3
[2025-03-30 15:44] LABS: Hematocrit 46.0 % (41-53); Hemoglobin 15.5 g/dL (13.5-17.5); Mean Corpuscular HGB Conc 33.7 % (30-36); Mean Corpuscular Hemoglobin 33.9 PG (26-34); Mean Corpuscular Volume 100.5 fL (80-100); Platelet Count 169 X10^3/uL (150-400)
[2025-03-30 16:20] LABS: Alanine Aminotransferase 42 IU/L (<50); Albumin 4.5 g/dL (3.5-5.0); Albumin Globulin Ratio 1.6 (1.0-2.8); Alkaline Phosphatase 86 U/L (38-126); Blood Urea Nitrogen 18 mg/dL (9-20); Calcium 9.6 mg/dL (8.4-10.2); Carbon Dioxide 23 mmol/L (22-32); Chloride 106 mmol/L (98-107); Estimated Glomerular Filt Rate > 60 mL/min (>60); Globulin 2.8 g/dL (1.7-4.1); Glucose 135 mg/dL (70-99); HEMOLYSIS 20 (0-50); Potassium 5.2 mmol/L (3.4-5.1); Sodium 140 mmol/L (137-145); Total Protein 7.3 g/dL (6.3-8.2)
== END ==
PROVIDERS: Referring Provider Physician Assistant; Visit Provider Physician Assistant
DX: I25.10 Atherosclerotic heart disease of native coronary artery without angina pectoris (principal); Z95.1 Presence of aortocoronary bypass graft
CPT/HCPCS: 36415; 80053; 85027

== ENCOUNTER → 2025-04-06 14:58 | Outpatient (CLI) | payer OTHER, SELFPAY ==
[2021-10-31 21:51] VITALS: BMI 23.3
[2025-04-06 15:30] LABS: Hematocrit 46.1 % (41-53); Hemoglobin 15.4 g/dL (13.5-17.5); Mean Corpuscular HGB Conc 33.4 % (30-36); Mean Corpuscular Hemoglobin 33.8 PG (26-34); Mean Corpuscular Volume 101.0 fL (80-100); Platelet Count 171 X10^3/uL (150-400)
[2025-04-06 17:03] LABS: Blood Urea Nitrogen 16 mg/dL (9-20); Calcium 9.3 mg/dL (8.4-10.2); Carbon Dioxide 26 mmol/L (22-32); Chloride 105 mmol/L (98-107); Estimated Glomerular Filt Rate > 60 mL/min (>60); Glucose 106 mg/dL (70-99); HEMOLYSIS < 15 (0-50); Potassium 4.5 mmol/L (3.4-5.1); Sodium 137 mmol/L (137-145)
== END ==
LOC: LAB 15:00
PROVIDERS: Referring Provider Physician Assistant; Visit Provider Physician Assistant
DX: I25.10 Atherosclerotic heart disease of native coronary artery without angina pectoris (principal); I25.5 Ischemic cardiomyopathy; Z95.1 Presence of aortocoronary bypass graft
CPT/HCPCS: 36415; 80048; 85027

== ENCOUNTER 2025-06-15 14:15 | Outpatient (RCR) | payer OTHER, SELFPAY ==
[2021-10-31 21:51] VITALS: BMI 23.3
== END 2025-06-15 16:15 ==
LOC: CAR 14:15
PROVIDERS: Referring Provider Thoracic Surgery (Cardiothoracic Vascular Surgery); Visit Provider Thoracic Surgery (Cardiothoracic Vascular Surgery)
DX: Z95.1 Presence of aortocoronary bypass graft (principal)
CPT/HCPCS: 82962; 93798